=== PATIENT | female | born 1990 | race Caucasian/White ===

== ENCOUNTER 2017-02-14 18:57 | Emergency (ER) | payer BC ==
[2017-02-14] MEDS ORDERED: NS 0.9% 1000 ML* 1,000 ML IV ONE (22:07)
[2017-02-14] MEDS ORDERED: Diphenoxylat/Atrop 2.5-0.025M* 1 TAB PO ONE (22:08)
[2017-02-14] MEDS ORDERED: Morphine INJ* 4 MG/ML 1 ML CARPUJECT IV ONE (22:09)
[2017-02-14] MEDS ORDERED: diPHENhydraMINE IV* 50 MG/ML 1 ml VIAL (BENADRYL) IV ONE (22:09)
[2017-02-14] MEDS ORDERED: Metoclopramide IV* 5 MG/ML 2 ML VIAL IV SLOW PU ONE (22:09)
[2017-02-15] MEDS ORDERED: Morphine INJ* 4 MG/ML 1 ML CARPUJECT IV ONE (00:22)
[2017-02-15 04:29] VITALS: BP 92/58
--- NOTE | 2017-02-15 23:38 | ED ---
Philip Drew Rebecca, scribed for Marita Elkins MD on 02/14/17 at 2200 . - HPI Summary HPI Summary: Pt is a 26 y/ F who is 9 weeks with a PMHx of migraines presenting to the ED c/o GERMAN. Pain began at 1100 today and is currently severe, ranked 9/10. GERMAN is located behind the R eye and is characterized as a typical migraine. Sx aggravated by light, alleviated by nothing. Additionally c/o photophobia, nausea and vaginal bleeding described as spotting. Denies abdominal cramps. A1 - prior her HCG levels did not rise. - History of Current Complaint Chief Complaint: EDHeadache Stated Complaint: 9 WKS PREG/HEADACHE/VOMITING Time Seen by Provider: 02/14/17 21:53 Hx Obtained From: Patient Chief Complaint: Pain - GERMAN Onset/Duration: Started Hours Ago, Still Present Current Severity: Severe Pain Intensity: 9 Location of Pain: Other: - Behind the R eye Character: Other: - Migraine Aggravating Factors: Other: - Light Alleviating Factors: Nothing Associated Signs and Symptoms: Positive: Nausea - Allergies/Home Medications Allergies/Adverse Reactions: Allergies Allergy/AdvReac Type Severity Reaction Status Date / Time No Known Allergies Allergy Verified 02/14/17 19:09 PMH/Surg Hx/FS Hx/Imm Hx Endocrine/Hematology History: Denies: Hx Diabetes Cardiovascular History: Denies: Hx Coronary Artery Disease Neurological History: Reports: Hx Migraine Infectious Disease History: No Infectious Disease History: Denies: Traveled Outside the [place] in Last 30 Days - Family History Known Family History: Positive: Hypertension - Social History Alcohol Use: None Substance Use Type: Reports: None Hx Tobacco Use: No Review of Systems Positive: Photophobia Positive: Nausea. Negative: Abdominal Pain Positive: other - Vaginal bleeding Positive: Headache All Other Systems Reviewed And Are Negative: Yes Physical Exam - Summary Physical Exam Summary: VITAL SIGNS: Reviewed. GENERAL: ~Patient is a well-developed and nourished female who appears uncomfortable. Patient is not in any acute respiratory distress. HEAD AND FACE: No signs of trauma. No ecchymosis, hematomas or skull depressions. No sinus tenderness. EYES: PERRLA, EOMI x 2, No injected conjunctiva, no nystagmus. EARS: Hearing grossly intact. Ear canals and tympanic membranes are within normal limits. MOUTH: Oropharynx within normal limits. NECK: Supple, trachea is midline, no adenopathy, no JVD, no carotid bruit, no c- spine tenderness, neck with full ROM. CHEST: Symmetric, no tenderness at palpation LUNGS: Clear to auscultation bilaterally. No wheezing or crackles. CVS: Regular rate and rhythm, S1 and S2 present, no murmurs or gallops appreciated. ABDOMEN: Soft, non-tender. No signs of distention. No rebound no guarding, and no masses palpated. Bowel sounds are normal. EXTREMITIES: FROM in all major joints, no edema, no cyanosis or clubbing. NEURO: Alert and oriented x 3. No acute neurological deficits. Speech is normal and follows commands. SKIN: Dry and warm - Physical Exam Triage Information Reviewed: Yes Vital Signs Reviewed: Yes Diagnostics - Vital Signs Vital Signs Temp Pulse Resp BP Pulse Ox 02/14/17 19:07 97.0 F 94 18 104/69 99 - Laboratory Lab Statement: Any lab studies that have been ordered have been reviewed, and results considered in the medical decision making process. Re-Evaluation - Re-Evaluation First Eval Re-Evaluation Time: 22:35 Comment: Pt reveals that she had an ultrasound done on Tuesday which showed a living fetus and that she has a small, subchorionic hemorrhage, so she will not have an US done here and will follow-up with OB tomorrow. Second Eval Re-Evaluation Time: 03:25 Change: Improved Comment: Pt's sx have improved. Discussed D/C plan. Course/Dx - Course Assessment/Plan: Pt is a 26 y/ F who is 9 weeks with a PMHx of migraines presenting to the ED c/o GERMAN since 1100 today, currently severe, ranked 9/10. GERMAN is located behind the R eye and is characterized as a typical migraine. Sx aggravated by light. Additionally c/o photophobia, nausea and vaginal bleeding described as spotting. Denies abdominal cramps. A1 - prior her HCG levels did not rise. In the ED course, pt was given Benadryl, Lomotil, Reglan, Morphine and fluids which improved her sx. She will be D/C to home with Dx of GERMAN. She understands and agrees. Medications reviewed. - Diagnoses Provider Diagnoses: Headache Discharge - Discharge Plan Condition: Stable Disposition: HOME Patient Education Materials: Acute Headache (ED) Referrals: Lynn Dang MD [Primary Care Provider] - Additional Instructions: RETURN TO EMERGENCY DEPARTMENT FOR ANY NEW OR WORSENING SYMPTOMS The documentation as recorded by the Philip carrillo Rebecca accurately reflects the service I personally performed and the decisions made by Brittni krishnan Abdul, MD.
== END 2017-02-15 04:29 | disposition home or self-care (01) ==
LOC: ED 18:57
DX: O26.891 Other specified pregnancy related conditions, first trimester (principal); R51 Headache; R11.0 Nausea; Z3A.09 9 weeks gestation of pregnancy
CPT/HCPCS: 36415; 84702; 96365; 96366; 96374; 96375; 96376; 99284; 99285; J1200; J2270; J2765

== ENCOUNTER 2017-05-19 19:16 | Emergency (ER) | payer BC ==
[2017-05-19] MEDS ORDERED: NS 0.9% 1000 ML* 1,000 ML IV ONE ×2 (20:15→21:08)
--- NOTE | 2017-05-19 20:18 | UC ---
Abdominal Pain Female HPI - HPI Summary HPI Summary: Nausea and vomiting today, no fever no diarrhea, two other co workers with similar symptoms - History of Current Complaint Chief Complaint: UCGeneralIllness Stated Complaint: NAUSEA,VOMITING,HEADACHE Time Seen by Provider: 05/19/17 20:11 Hx Obtained From: Patient Hx Last Menstrual Period: 23 weeks pregant ?: Yes Onset/Duration: Sudden Onset, Lasting Days - 1, Still Present Timing: Constant Severity Initially: Moderate Severity Currently: Moderate Pain Intensity: 4 Pain Scale Used: 0-10 Numeric Location: Diffuse Radiates: No Character: Cramping Aggravating Factor(s): Food Alleviating Factor(s): Other: - some relief with Zofran Associated Signs and Symptoms: Positive: Negative, Decreased Appetite, Nausea, Vomiting Allergies/Adverse Reactions: Allergies Allergy/AdvReac Type Severity Reaction Status Date / Time No Known Allergies Allergy Verified 05/19/17 19:51 Home Medications: Home Medications Calcium Carbonate CHEW TAB* [Tums*] 1,000 mg PO BID 05/19/17 [History Confirmed 05/19/17] Metoprolol Succinate XL TAB* [Toprol XL TAB*] 25 mg PO DAILY 05/19/17 [History Confirmed 05/19/17] Ondansetron TAB* [Zofran 4 MG Tab*] 4 mg PO Q6H PRN 05/19/17 [History Confirmed 05/19/17] 95/Iron Fum/Folic/Dha [ Multivitamin + D] 1 mis PO DAILY [History Confirmed 05/19/17] PMH/Surg Hx/FS Hx/Imm Hx Previously Healthy: Yes - Surgical History Surgical History: Yes Surgery Procedure, Year, and Place: c section - Family History Known Family History: Positive: Hypertension - Social History Occupation: Employed Full-time Lives: With Family Alcohol Use: None Substance Use Type: None Smoking Status (MU): Never Smoked Tobacco Review of Systems Constitutional: Negative Skin: Negative Eyes: Negative ENT: Negative Respiratory: Negative Cardiovascular: Negative Gastrointestinal: Abdominal Pain, Vomiting, Nausea Genitourinary: Negative Motor: Negative Neurovascular: Negative Musculoskeletal: Negative Neurological: Negative Psychological: Negative Is Patient Immunocompromised?: No All Other Systems Reviewed And Are Negative: Yes Physical Exam Triage Information Reviewed: Yes Appearance: Well-Appearing, No Pain Distress, Well-Nourished Vital Signs: Initial Vital Signs Temp 99.1 F 05/19/17 19:47 Pulse 98 05/19/17 19:47 Resp 14 05/19/17 19:47 BP 99/64 05/19/17 19:47 Pulse Ox 100 05/19/17 19:47 Vital Signs Reviewed: Yes Eye Exam: Normal Eyes: Positive: Conjunctiva Clear ENT Exam: Normal ENT: Positive: Normal ENT inspection, Hearing grossly normal. Negative: Nasal congestion, Trismus, Muffled voice, Hoarse voice Dental Exam: Normal Neck exam: Normal Neck: Positive: Supple, Nontender Respiratory Exam: Normal Respiratory: Positive: Chest non-tender, Lungs clear, Normal breath sounds, No respiratory distress, No accessory muscle use Cardiovascular Exam: Normal Cardiovascular: Positive: RRR, No Murmur, Pulses Normal, Brisk Capillary Refill Abdominal Exam: Normal Abdomen Description: Positive: Nontender, No Organomegaly, Soft. Negative: CVA Tenderness (R), CVA Tenderness (L), Distended, Guarding Bowel Sounds: Positive: Present Musculoskeletal Exam: Normal Musculoskeletal: Positive: Strength Intact, ROM Intact, No Edema Neurological Exam: Normal Neurological: Positive: Alert, Muscle Tone Normal Psychological Exam: Normal Skin Exam: Normal Re-Evaluation - Re-Evaluation First Eval Change: Improved - feeling better has not vomited Abd Pain Female Course/Dx - Course Course Of Treatment: home rest advance diet slowly, follow with OB in am---to ed should sx worsen or fail to improve - Differential Dx/Diagnosis Provider Diagnoses: Acute nausea and vomiting in 2nd trimester Discharge - Discharge Plan Condition: Stable Disposition: HOME Patient Education Materials: Acute Nausea and Vomiting (ED) Referrals: Lynn Dang MD [Primary Care Provider] - Additional Instructions: Follow with ob MD in the morning---To ED should symptoms worsen or fail to improve---
[2017-05-19 22:03] VITALS: BP 93/52
== END 2017-05-19 22:03 | disposition home or self-care (01) ==
LOC: UCCORT 19:16
DX: O21.0 Mild hyperemesis gravidarum (principal); Z3A.23 23 weeks gestation of pregnancy
CPT/HCPCS: 81003; 87086; 87502; 96360; 96361; 99212; G0463

== ENCOUNTER 2017-09-28 18:06 | Emergency (ER) | payer BC ==
[2017-09-28 19:13] VITALS: BP 92/58
--- NOTE | 2017-09-28 19:18 | UC ---
Skin Complaint HPI - HPI Summary HPI Summary: Patient is 2 weeks . Patient is exclusively prompting. Patient had a delivery. Patient states starting yesterday noticed some erythema medial margin of her right breast. Patient states the day today the redness has become more warm and increase in size. Patient states she continues to produce milk. Patient states this seems different than a blocked duct which she 's had the past. Patient without any blood or malodor to milk produced from this breast. Patient without fevers. Patient has taken Tylenol for discomfort. Patient without any other complaints. Patient does not have a history of MRSA. Patient's medications reviewed this visit. - History of Current Complaint Chief Complaint: UCSkin Stated Complaint: SKIN COMPLAINT Hx Obtained From: Patient Hx Last Menstrual Period: 2 WKS Onset Severity: Moderate Current Severity: Moderate Pain Intensity: 6 Pain Scale Used: 0-10 Numeric Location: Discrete - Allergy/Home Medications Allergies/Adverse Reactions: Allergies Allergy/AdvReac Type Severity Reaction Status Date / Time No Known Allergies Allergy Verified 05/19/17 19:51 Home Medications: Home Medications Acetaminophen [Tylophen] 1,000 mg PO Q12HR 09/28/17 [History Confirmed 09/28/17] Review of Systems Constitutional: Negative Skin: Rash All Other Systems Reviewed And Are Negative: Yes PMH/Surg Hx/FS Hx/Imm Hx Previously Healthy: Yes - Surgical History Surgical History: Yes Surgery Procedure, Year, and Place: c section X2 - Family History Known Family History: Positive: Hypertension - Social History Occupation: Employed Full-time Lives: With Family Alcohol Use: None Substance Use Type: None Smoking Status (MU): Never Smoked Tobacco Physical Exam - Summary Physical Exam Summary: Vital Signs Reviewed: Yes A+Ox3, no distress Eyes: Conjunctiva Clear ENT: Hearing grossly normal neck: supple Breast: right breast - pt with 3 x2 cm area of erythema medial aspect of right breast. Does not extend to nipple. Slight warmth. Slight firmness. No fluctuance, no induration, no blister Respiratory: Positive: No respiratory distress, No accessory muscle use CTA throughout no w/r Cardiovascular: skin color reflect adequate perfusion RRR nl s1, s2 no m/r Musculoskeletal Exam: MATHIS x 4 without difficulty Neurological: Positive: Alert, ambulatory without difficulty Psychological: Positive: Normal Response To Family Skin: Positive: no rash, no ecchymosis Triage Information Reviewed: Yes Vital Signs: Initial Vital Signs Temp 97.9 F 09/28/17 19:09 Pulse 90 09/28/17 19:09 Resp 17 09/28/17 19:09 BP 92/58 09/28/17 19:09 Pulse Ox 99 09/28/17 19:09 Course/Dx - Course Course Of Treatment: Patient 2 weeks . Patient with 2 x 3 cm area of erythema tenderness and fullness of the right medial breast. Patient is pumping. Patient has able took continue to produce milk from right side. Patient states she taken Tylenol for discomfort. No fevers or chills. Patient is not immunocompromised. Patient does not have a history of MRSA. Suspect patient does have mastitis. We'll start amoxicillin 500 mg 3 times a day. Discussed with patient to monitor for increasing symptoms. Tylenol is okay. Recommend that she wear good support bra and apply heat. Return precautions discussed. Patient states comfortable in agreement with plan. - Diagnoses Provider Diagnoses: mastitis right breast Discharge - Sign-Out/Discharge Documenting (check all that apply): Patient Departure - Discharge Plan Condition: Stable Disposition: HOME Prescriptions: Amoxicillin PO (*) [Amoxicillin 500 MG CAP*] 500 mg PO TID #30 cap Patient Education Materials: Mastitis (ED) Referrals: Lynn Dang MD [Primary Care Provider] - Additional Instructions: - Stay well hydrated. Drink plenty of non -caffinated fluids - Apply warm soaks to the inflammed area - continue to wear good support bra - continue to pump milk - Okay to take tylenol every 6-8 hours for pain - contact your doctor, return here, or go to the emergency department for fever , increased reddness, pain, bloody nipple discharge or any other concerns - Billing Disposition and Condition Condition: STABLE Disposition: Home
== END 2017-09-28 19:41 | disposition home or self-care (01) ==
LOC: UCCORT 18:06
DX: O90.89 Other complications of the puerperium, not elsewhere classified (principal); O91.22 Nonpurulent mastitis associated with the puerperium
CPT/HCPCS: 99211; G0463

== ENCOUNTER 2018-02-21 14:35 | Emergency (ER) | payer BC ==
[2018-02-21] MEDS ORDERED: Metoprolol Tartrate TAB* 25 MG PO ONE ×2 (15:06→15:39)
--- NOTE | 2018-02-21 15:15 | UC ---
Palpitation/Dysrhythmia HP - HPI Summary HPI Summary: The patient is a 27-year-old female with a history of louey bryson syndrome. She is followed for this at [facility]. She has yearly cardiac echo's. She has biannual MRAs of her brain. Today around 10 AM she started experiencing palpitations. Her heart would beat faster than normal with no irregularity or skipped beats. For a brief episode her heart rate was in the 150s and this was associated with shortness of breath. She denies any chest pain. She is supposed to be on 50 mg of metoprolol daily. She has not taken this for at least 5 months. At the time of my exam she feels fine. She is about 5 months . She was anemic during her . She took her metoprolol during her and it controlled her palpitations. - History of Current Complaint Chief Complaint: UCGeneralIllness Stated Complaint: PALPITATIONS Time Seen by Provider: 02/21/18 14:36 Hx Obtained From: Patient Hx Last Menstrual Period: dec 2016 Onset/Duration: Sudden Onset, Lasting Minutes Timing: Intermittent Episodes Lasting: Severity Initially: Moderate Severity Currently: None Pain Intensity: 0 Pain Scale Used: 0-10 Numeric Character: Fast, Pounding Aggravating Factor(s): Other - standing Alleviating Factor(s): Other - rest Associated Signs & Symptoms: Positive: Shortness of Breath - x minutes - Allergy/Home Medications Allergies/Adverse Reactions: Allergies Allergy/AdvReac Type Severity Reaction Status Date / Time No Known Allergies Allergy Verified 02/21/18 14:38 Home Medications: Home Medications Butalb/Acetamin/Caff TAB* [Fioricet TAB*] 2 tab DAILY PRN 02/21/18 [History Confirmed 02/21/18] Ketorolac INJ* [Toradol INJ*] 60 mg DAILY PRN 02/21/18 [History Confirmed ] PMH/Surg Hx/FS Hx/Imm Hx Previously Healthy: Yes Neurological History: Migraine - Surgical History Surgical History: Yes Surgery Procedure, Year, and Place: c section X2 - Family History Known Family History: Positive: Hypertension, Other - DAD of SAH - Social History Alcohol Use: Rare Substance Use Type: None Smoking Status (MU): Never Smoked Tobacco Review of Systems All Other Systems Reviewed And Are Negative: Yes Constitutional: Positive: Negative Skin: Positive: Negative Eyes: Positive: Negative ENT: Positive: Negative Respiratory: Positive: Shortness Of Breath Cardiovascular: Positive: Palpitations Gastrointestinal: Positive: Negative Genitourinary: Positive: Negative Motor: Positive: Negative Neurovascular: Positive: Negative Musculoskeletal: Positive: Negative Neurological: Positive: Negative Psychological: Positive: Negative Physical Exam Triage Information Reviewed: Yes Appearance: Well-Appearing, No Pain Distress, Well-Nourished Vital Signs: Initial Vital Signs Temp 97.6 F 02/21/18 14:40 Pulse 89 02/21/18 14:40 Resp 16 02/21/18 14:40 BP 107/66 02/21/18 14:40 Pulse Ox 100 02/21/18 14:40 Eye Exam: Normal Eyes: Positive: Conjunctiva Clear ENT: Positive: Hearing grossly normal. Negative: Nasal congestion, Nasal drainage, Muffled voice Neck: Positive: Supple, Nontender Respiratory: Positive: Lungs clear, Normal breath sounds, No respiratory distress Cardiovascular: Positive: RRR, No Murmur, Tachycardia - rate 100 Musculoskeletal: Positive: ROM Intact, No Edema Neurological: Positive: Alert Psychological Exam: Normal Diagnostics - EKG Cardiac Rate: NL, Tachycardia Cardiac Rhythm: Sinus: Normal Ectopy: None ST Segment: Normal Re-Evaluation - Re-Evaluation First Eval Change: Improved Palpitations Course/Dx - Differential Dx/Diagnosis Provider Diagnosis: Sinus tachycardia, Connective tissue disorder Discharge - Sign-Out/Discharge Documenting (check all that apply): Patient Departure All imaging exams completed and their final reports reviewed: No Studies - Discharge Plan Condition: Stable Disposition: HOME Patient Education Materials: Heart Palpitations (ED) Referrals: Lynn Dang MD [Primary Care Provider] - Additional Instructions: take another 25 mg of metroprolol when you get home then start taking 50mg/d contact your specialist at [facility] to discuss follow up recheck for new or worsening symptoms - Billing Disposition and Condition Condition: STABLE Disposition: Home
[2018-02-21 15:23] VITALS: BP 131/70
[2018-02-21 19:05] LABS: ABS Basophils 0 10^3/ul (0-0.2); ABS Eosinophils 0.1 10^3/ul (0-0.6); ABS Lymphocytes 1.9 10^3/ul (1.0-4.8); ABS Monocytes 0.4 10^3/ul (0-0.8); ABS Neutrophils 2.6 10^3/ul (1.5-7.7); ABS Nucleated RBC 0 10^3/ul; Eosinophil % 1.8 %; Hematocrit 38 % (35-47); Hemoglobin 12.6 g/dl (12.0-16.0); Lymphocyte % 38.1 %; Mean Corpuscular HGB Conc 34 g/dl (31-36); Mean Corpuscular Hemoglobin 29 pg (27-31); Mean Corpuscular Volume 87 fL (80-97); Mean Platelet Volume 8.1 fL (7.4-10.4); Nucleated Red Blood Cells % 0.1; Platelet Count 239 10^3/ul (150-450); Red Blood Count 4.35 10^6/ul (4.00-5.40); Red Cell Distribution Width 14 % (10.5-15)
== END 2018-02-21 16:02 | disposition home or self-care (01) ==
LOC: UCCORT 14:35
DX: R00.0 Tachycardia, unspecified (principal); L94.9 Localized connective tissue disorder, unspecified
CPT/HCPCS: 36415; 84443; 85025; 93005; 99213; G0463